=== PATIENT | male | born 1945 | race Caucasian/White ===

== ENCOUNTER → 2021-07-29 | Day surgery (SDC) | payer MEDICARE, OTHER ==
[~2021-07-29] VITALS: Ht 177.8 cm; Wt 107.3 kg
[~2021-07-29] MED LIST: ASPIRIN EC81 MG PO; ATENOLOL50 MG PO; BUMEX1 MG PO; CEFTIN250 MG PO; COUMADIN4 MG PO; COUMADIN5 MG PO; FLOMAX 0.4 MG0.4 MG PO; FLORANEX TABLE1 EACH PO; KLOR-CON 1010 MEQ PO; LIPITOR40 MG PO; LOPRESSOR25 MG PO; NOVOLOG VI100 UNIT/1 IJ; POLY-IRON150 MG PO; PROTONIX 40MG T40 MG PO; TRESIBA FL100 UNIT/1 IJ; VIBRAMYCIN100 MG PO; ZESTRIL5 MG PO; ZYVOX600 MG PO
[2021-07-29 09:23] LABS: HGB 14.4 g/dl (13.2-18.0); MCH 30.8 pg (25.0-31.0); MCHC 34.3 g/dL (32.0-36.0); MCV 89.9 fL (78.0-100.0); MPV 11.4 fL (6.0-9.5); RBC 4.67 M/uL (4.70-6.00); RDW 15.9 % (11.5-14.0); WBC 4.2 K/uL (4.0-10.5)
[2021-07-29 10:16] LABS: CREATININE 1.32 mg/dL (0.67-1.17)
[2021-07-29 10:18] LABS: ALBUMIN 4.1 g/dL (3.4-5.0); BILIRUBIN - TOTAL 2.1 mg/dL (0.2-1.0); GLOBULIN (CALCULATION) 3.8 g/dL; POTASSIUM 4.4 mmol/L (3.5-5.1); TOTAL PROTEIN 7.9 g/dL (6.4-8.2)
== END | disposition home or self-care (01) ==
LOC: FAS 08:48
PROVIDERS: Surgery
DX: R10.32 Left lower quadrant pain (principal); N40.0 Benign prostatic hyperplasia without lower urinary tract symptoms; E11.9 Type 2 diabetes mellitus without complications; Z79.82 Long term (current) use of aspirin; Z79.899 Other long term (current) drug therapy
CPT/HCPCS: 36415; 80053; J2704; J7120